=== PATIENT | male | born 1995 | race African-American/Black ===

== ENCOUNTER 2017-11-29 09:18 | Emergency (ER) | payer BC ==
[~2017-11-29] VITALS: Ht 170.2 cm; Wt 57.0 kg
[2017-11-29 09:20] VITALS: Ht 170.2 cm; Wt 57.0 kg
[2017-11-29] MEDS ORDERED: ONDANSETRON INJ 2 MG/ML 2 ML VIAL IV STA (09:48)
[2017-11-29] MEDS ORDERED: SODIUM CHLORIDE 0.9% 1000ML 1,000 ML IV STA (09:48)
[2017-11-29] MEDS ORDERED: ADVIN25/60 INH (09:49)
[2017-11-29 09:55] LABS: BASO % 0.4 %; BASO ABS # 0.03 K/uL (0-0.2); EOS % 1.9 %; EOS ABS # 0.16 K/uL (0-0.5); HEMOGLOBIN 14.5 g/dL (14.0-18.0); IG# 0.02 K/uL (0.00-0.02); LYMPH % 39.4 %; LYMPH ABS # 3.36 K/uL (1.2-3.4); MEAN CELL VOLUME 82.2 fL (80-100); MEAN CORPUSCULAR HEMOGLOBIN 27.7 pg (25-34); MEAN CORPUSCULAR HGB CONC 33.7 g/dl (32-36); MEAN PLATELET VOLUME 9.8 fL (7.4-10.4); MONO % 6.9 %; MONO ABS # 0.59 K/uL (0.11-0.59); NEUT % 51.2 %; NEUT ABS # 4.36 K/uL (1.4-6.5); PLATELET COUNT 198 K/uL (130-400); RED CELL DISTRIBUTION WIDTH CV 14.7 % (11.5-14.5); RED CELL DISTRIBUTION WIDTH SD 43.6 fL (36.4-46.3); WHITE BLOOD COUNT 8.52 K/uL (4.8-10.8)
[2017-11-29 10:08] LABS: ALBUMIN 4.2 gm/dl (3.4-5.0); CALCIUM 9.4 mg/dl (8.5-10.1); CREATININE 1.5 mg/dl (0.60-1.40); POTASSIUM 3.4 mmol/L (3.5-5.1)
[2017-11-29 10:10] LABS: TOTAL PROTEIN 7.7 gm/dl (6.4-8.2)
--- NOTE | 2017-11-29 11:21 | DIAGNOSTIC IMAGING REPORT ---
BILIARY ULTRASOUND CLINICAL HISTORY: Epigastric abdominal pain COMPARISON STUDY: No previous studies for comparison. FINDINGS: The liver appears sonographically normal. The gallbladder appears sonographically normal. There is no right-sided hydronephrosis. There is no ductal dilatation. The common bile duct measures 3 mm. The pancreas appears sonographically normal. IMPRESSION: Normal biliary ultrasound. Electronically signed by: Norman Geller M.D. 11/29/2017 11:19 AM Dictated Date/Time: 11/29/2017 11:19 AM
[2017-11-29 12:52] VITALS: BP 115/59; PULSE 50; TEMP 36.9; O2SAT 97
--- NOTE | 2017-11-29 18:31 | EMERGENCY ROOM VISIT NOTE ---
ED Visit Note First contact with patient: 09:21 Chief Complaint: Abdominal pain. History of Present Illness: Mr. Cortez is a 22 year-old black male who ambulates into the ED accompanied by female friend complaining of severe upper abdominal pain. Historically patient reports patient denies any previous significant gastrointestinal disorders or surgeries. Patient reports an acute onset of epigastric and right upper quadrant abdominal pain that started approximately 1.5 hours ago. Since that time the pain has been constant. He describes his pain as a sharp sensation. He places his discomfort in the epigastrium and the medial border of the right upper quadrant. He reports at its onset he rates his discomfort 10/10. Then he became nauseated and had one episode of vomiting approximately 10-15 minutes ago and his pain decreased to 3/10. He has not taken any medications for his pain prior to arrival at the hospital. He denies fevers, chills, sweats, skin eruptions, skin color changes, upper respiratory tract symptoms, shortness of breath, chest pain, diarrhea, constipation, rectal bleeding, black/tarry stools, urinary symptoms, hematuria, back/flank pain. Review of Systems: As noted above in history of present illness. All body systems were reviewed and found to be negative as noted above. Past Medical History: Patient denies. Current Medications: Advair. Allergies to Medications: Patient denies. Social History: Patient is currently University student Physical Examination: Vital Signs: Date Time Temp Pulse Resp B/P (MAP) Pulse Ox O2 Delivery O2 Flow Rate FiO2 11/29/17 12:52 36.9 50 18 115/59 97 Room Air 11/29/17 11:35 64 18 90/60 98 Room Air 11/29/17 10:20 54 11/29/17 09:20 36.3 54 16 100/63 98 Room Air GENERAL: 22-year-old male in mild to moderate distress due to pain, nontoxic- appearing, afebrile and hemodynamically stable. NEUROLOGICAL: Awake, alert and oriented to person, place and time. Answering questions appropriately and following commands. Normal gait. Good hand eye coordination. SKIN: Warm, dry and pink. No soft tissue eruptions or trauma noted. HEENT: Atraumatic and normocephalic. PERRLA. Sclera white and conjunctiva pink. Oral cavity moist and pink. Pharynx is nonerythematous or edematous. Speech normal. No lymphadenopathy. Trachea midline. No jugular venous distention. BACK: No tenderness over the bony spine. No CVA tenderness. THORAX: Lungs sounds are clear to auscultation and equal bilaterally with symmetrical chest wall. No wheezing, rales or rhonchi. No crepitus, tenderness , subcutaneous air or deformities noted. HEART: Regular rate and rhythm. No gallops, rubs or murmurs are appreciated. ABDOMEN: Flat and soft with mild to moderate tenderness in the epigastrium and mild tenderness in the medial border of the right upper quadrant. Increased bowel sounds in all quadrants. No guarding, rigidity or organomegaly. EXTREMITIES: Moves all extremities well on command and with purpose. All distal neurovascular statuses are intact and equal bilaterally. ED Course: Patient is assessed as noted above. Patient's medication list was reviewed. Laboratory Testing: Test 11/29/17 09:30 11/29/17 09:40 11/29/17 11:56 Range/Units Sodium Level 138 136-145 mmol/L Potassium Level 3.4 3.5-5.1 mmol/L Chloride Level 102 98-107 mmol/L Carbon Dioxide Level 29 21-32 mmol/L Anion Gap 7.0 3-11 mmol/L Blood Urea Nitrogen 13 7-18 mg/dl Creatinine 1.50 0.60-1.40 mg/dl Est Creatinine Clear Calc Drug Dose 62.8 ml/min Estimated GFR () 76.0 Estimated GFR (Non- 65.6 BUN/Creatinine Ratio 8.6 10-20 Random Glucose 109 70-99 mg/dl Calcium Level 9.4 8.5-10.1 mg/dl Total Bilirubin 0.8 0.2-1 mg/dl Direct Bilirubin 0.2 0-0.2 mg/dl Aspartate Amino Transf (AST/SGOT) 28 15-37 U/L Alanine Aminotransferase (ALT/SGPT) 23 12-78 U/L Alkaline Phosphatase 62 45-117 U/L Total Protein 7.7 6.4-8.2 gm/dl Albumin 4.2 3.4-5.0 gm/dl Lipase 141 73-393 U/L White Blood Count 8.52 4.8-10.8 K/uL Red Blood Count 5.23 4.7-6.1 M/uL Hemoglobin 14.5 14.0-18.0 g/dL Hematocrit 43.0 42-52 % Mean Corpuscular Volume 82.2 80-100 fL Mean Corpuscular Hemoglobin 27.7 25-34 pg Mean Corpuscular Hemoglobin Concent 33.7 32-36 g/dl Platelet Count 198 130-400 K/uL Mean Platelet Volume 9.8 7.4-10.4 fL Neutrophils (%) (Auto) 51.2 % Lymphocytes (%) (Auto) 39.4 % Monocytes (%) (Auto) 6.9 % Eosinophils (%) (Auto) 1.9 % Basophils (%) (Auto) 0.4 % Neutrophils # (Auto) 4.36 1.4-6.5 K/uL Lymphocytes # (Auto) 3.36 1.2-3.4 K/uL Monocytes # (Auto) 0.59 0.11-0.59 K/uL Eosinophils # (Auto) 0.16 0-0.5 K/uL Basophils # (Auto) 0.03 0-0.2 K/uL RDW Standard Deviation 43.6 36.4-46.3 fL RDW Coefficient of Variation 14.7 11.5-14.5 % Immature Granulocyte % (Auto) 0.2 % Immature Granulocyte # (Auto) 0.02 0.00-0.02 K/uL Urine Color YELLOW Urine Appearance CLEAR CLEAR Urine pH 6.0 4.5-7.5 Urine Specific [place] 1.031 1.000-1.030 Urine Protein TRACE NEG Urine Glucose (UA) NEG NEG Urine Ketones TRACE NEG Urine Occult Blood NEG NEG Urine Nitrite NEG NEG Urine Bilirubin NEG NEG Urine Urobilinogen NEG NEG Urine Leukocyte Esterase NEG NEG Urine WBC (Auto) 1-5 0-5 /hpf Urine RBC (Auto) 0-4 0-4 /hpf Urine Hyaline Casts (Auto) 1-5 0-5 /lpf Urine Epithelial Cells (Auto) 10-20 0-5 /lpf Urine Bacteria (Auto) NEG NEG Gallbladder Ultrasound: Was reviewed by myself and read by the radiologist and showing a normal biliary ultrasound. An IV lock was initiated and patient received 4 mg of Zofran IV; he was offered pain medications and refused. Patient was reassessed multiple times during his stay in the emergency department. Patient's case was reviewed with Dr. Liz; we agreed on diagnostic approach, treatment, disposition and plan. Patient was educated about today's findings and instructed on his treatment plan ; he verbalized understanding and agreement with this plan. Clinical Impression: Epigastric and right upper quadrant abdominal pain. Decision-Making: Initially my differential diagnosis I considered biliary colic , pancreatitis, hepatitis, cholecystitis, esophagitis, gastric reflux and other causes. Disposition: Patient discharged home in stable condition accompanied by female friends; prior to departure he was reassessed and subjectively reported that he was pain and symptom-free. Plan: Patient was encouraged to alternate ibuprofen and acetaminophen as needed for pain every 3 hours. Patient was encouraged to stay well-hydrated with increased clear fluids. Patient was encouraged to follow-up with his primary care provider for recheck if no better in 2-3 days. Patient was encouraged return ED for worsening/uncontrolled pain, uncontrolled nausea/vomiting, fevers, bloody stools or any new/concerning symptoms.
== END 2017-11-29 12:59 | disposition home or self-care (01) ==
LOC: EDBD 09:18 → C.EDB 09:20
DX: R10.13 Epigastric pain (principal); R10.11 Right upper quadrant pain